=== PATIENT | female | born 1995 | race Caucasian/White ===

== ENCOUNTER 2016-07-07 15:22 | Emergency (ER) | payer BC, MEDICAID, OTHER ==
[~2016-07-07] VITALS: Ht 170.2 cm; Wt 75.8 kg
[2016-07-07 15:25] VITALS: BP 120/78; PULSE 87; RESP 18; TEMP 98.4; O2SAT 100
--- NOTE | 2016-07-07 15:50 | PD ---
HPI Chief Complaint: Chest Pain Time Seen by Provider: 15:45 Travel History International Travel<30 days: No Contact w/Intl Traveler<30days: No Traveled to known affect area: No History of Present Illness HPI Patient is a 21-year-old female presents emergency Department with chest pain. She states the chest pain has been going on since 2011. When asked the patient why it's changed today she states that she went to [facility] twice and was told that it was costochondritis. She states that she was unsatisfied with this diagnosis and decided to come here. Patient states these were remote presentations over a year ago. When pushing the patient find out that she is actually having chest pain for about an hour now. 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 She states that it localized into her chest and her throat. She states it felt very tight and associated with some mild shortness of breath. States this is very similar to previous pain episodes. Patient states she's never followed up with her primary care physician because she doesn 't have one and can't afford one. Patient states that she also thinks she has scoliosis because she's noticed a curvature in her back and thinks this must be contributing to her rib pain. Denies a cough denies fever denies use of oral contraception pills. PFSH Past Medical History Diminished Hearing: No Medical other: Yes (COSTACHRONDITIS) Respiratory: Yes (asthma as child) Tetanus Vaccination: Unknown ?: Not LMP: 06-08-16 Past Surgical History Surgical History: No Previous Surgery Social History Alcohol Use: No Tobacco Use: No Substance Use: No Allergies-Medications (Allergen,Severity, Reaction): Coded Allergies: No Known Allergies (Unverified , 07/07/16) Reported Meds & Prescriptions Reported Meds & Active Scripts Active No Active Prescriptions or Reported Medications Review of Systems Except as stated in HPI: all other systems reviewed are Neg Physical Exam Narrative GENERAL: Well-developed well-nourished in no apparent distress SKIN: No rash no wound. HEAD: Atraumatic. Normocephalic. EYES: Pupils equal and round. No scleral icterus. No injection or drainage. ENT: No nasal bleeding or discharge. Mucous membranes pink and moist. NECK: Trachea midline. No JVD. CARDIOVASCULAR: Regular rate and rhythm. No murmur appreciated. RESPIRATORY: No accessory muscle use. Clear to auscultation. Breath sounds equal bilaterally. 2+ bilateral equal pulses in all 4 extremities GASTROINTESTINAL: Abdomen soft, non-tender, nondistended. Hepatic and splenic margins not palpable. MUSCULOSKELETAL: No obvious deformities. No clubbing. No cyanosis. No edema. NEUROLOGICAL: Awake and alert. No obvious cranial nerve deficits. Motor grossly within normal limits. Normal speech. PSYCHIATRIC: Appropriate mood and affect; insight and judgment normal. Data Data Last Documented VS Vital Signs Date Time Temp Pulse Resp B/P Pulse Ox O2 Delivery O2 Flow Rate FiO2 07/07/16 17:04 61 16 119/68 99 07/07/16 16:08 Nasal Cannula 2 07/07/16 15:25 98.4 Orders Basic Metabolic Panel (Bmp) (07/07/16 15:46) Ckmb (Isoenzyme) Profile (07/07/16 15:46) Complete Blood Count With Diff (07/07/16 15:46) D-Dimer (07/07/16 15:46) Troponin I (07/07/16 15:46) Ecg Monitoring (07/07/16 15:46) Iv Access Insert/Monitor (07/07/16 15:46) Oximetry (07/07/16 15:46) Oxygen Administration (07/07/16 15:46) Sodium Chloride 0.9% Flush (Ns Flush) (07/07/16 16:00) Chest, Pa & Lat (07/07/16 15:46) Ed Urine Pregnancytest Poc (07/07/16 15:46) CKMB (07/07/16 15:40) CKMB% (07/07/16 15:40) Ketorolac Inj (Toradol Inj) (07/07/16 16:45) Labs Laboratory Tests Test 07/07/16 15:40 White Blood Count 6.6 TH/MM3 Red Blood Count 4.65 MIL/MM3 Hemoglobin 13.3 GM/DL Hematocrit 39.9 % Mean Corpuscular Volume 85.8 FL Mean Corpuscular Hemoglobin 28.7 PG Mean Corpuscular Hemoglobin 33.4 % Concent Red Cell Distribution Width 12.6 % Platelet Count 238 TH/MM3 Mean Platelet Volume 8.7 FL Neutrophils (%) (Auto) 61.9 % Lymphocytes (%) (Auto) 29.7 % Monocytes (%) (Auto) 6.5 % Eosinophils (%) (Auto) 0.4 % Basophils (%) (Auto) 1.5 % Neutrophils # (Auto) 4.2 TH/MM3 Lymphocytes # (Auto) 1.9 TH/MM3 Monocytes # (Auto) 0.4 TH/MM3 Eosinophils # (Auto) 0.0 TH/MM3 Basophils # (Auto) 0.1 TH/MM3 CBC Comment DIFF FINAL Differential Comment D-Dimer Quantitative (PE/DVT) 0.21 MG/L FEU Sodium Level 141 MEQ/L Potassium Level 3.7 MEQ/L Chloride Level 108 MEQ/L Carbon Dioxide Level 25.3 MEQ/L Anion Gap 8 MEQ/L Blood Urea Nitrogen 12 MG/DL Creatinine 0.63 MG/DL Estimat Glomerular Filtration 120 ML/MIN Rate Random Glucose 84 MG/DL Calcium Level 8.3 MG/DL Total Creatine Kinase 124 U/L Creatine Kinase MB LESS THAN 0.5 NG/ML Troponin I LESS THAN 0.02 NG/ML MDM Medical Decision Making Medical Screen Exam Complete: Yes Emergency Medical Condition: Yes Interpretation(s) EKG shows sinus arrhythmia with an overall rate of 72, normal axis normal R- wave progression. No concerning ST T changes. Intervals within normal limits. This is normal EKG Differential Diagnosis Chest wall pain, ACS highly unlikely, PR highly unlikely, PE is unlikely. Narrative Course Patient was roomed in the emergency department. She denies possibility for and therefore was given Toradol. She appears comfortable and in no obvious distress. Initial workup including EKG CBC CMP d-dimer and troponin all of which are within normal limits. She is highly atypical and very low risk for cardiac etiology. Discussed with her need for follow-up with a primary care physician at this point. Discussed with her the [facility] and she has been given a flyer and while reading and she states that this would be good for her because she also needs some mental health help. Patient states that she has a history of PTSD but is fairly well-controlled without medication at this time. Diagnosis Primary Impression: Chest pain with low risk for cardiac etiology Referrals: [facility] Scripts No Active Prescriptions or Reported Meds Disposition: 01 DISCHARGE HOME Condition: Stable Napoleon Crane MD July 07, 2016 15:50
[2016-07-07] MEDS ORDERED: SODIUM CHLORIDE 0.9% FLUSH 10 ML FLUSH IVF PRN (16:00)
[2016-07-07 16:05] VITALS: RESP 16; O2SAT 100
[2016-07-07 16:06] LABS: AUTOMATED NEUTROPHIL # 4.2 TH/MM3 (1.8-7.7); BASOPHIL # 0.1 TH/MM3 (0-0.2); BASOPHIL % 1.5 % (0.0-2.0); EOSINOPHIL % 0.4 % (0.0-4.0); HEMATOCRIT 39.9 % (35.0-46.0); HEMO FLAGS DIFF FINAL; LYMPH % 29.7 % (9.0-44.0); LYMPHOCYTE # 1.9 TH/MM3 (1.0-4.8); MEAN CELL VOLUME 85.8 FL (80.0-100.0); MEAN CORPUSCULAR HEMOGLOBIN 28.7 PG (27.0-34.0); MEAN CORPUSCULAR HGB CONC 33.4 % (32.0-36.0); MONO % 6.5 % (0.0-8.0); NEUT % 61.9 % (16.0-70.0); PLATELET COUNT 238 TH/MM3 (150-450); RED BLOOD COUNT 4.65 MIL/MM3 (4.00-5.30); RED CELL DISTRIBUTION WIDTH 12.6 % (11.6-17.2); WHITE BLOOD COUNT 6.6 TH/MM3 (4.0-11.0)
[2016-07-07 16:08] VITALS: BP 120/55; PULSE 88; RESP 16; O2SAT 100
[2016-07-07 16:13] LABS: CHLORIDE 108 MEQ/L (98-107); POTASSIUM 3.7 MEQ/L (3.5-5.1); SODIUM (NA) 141 MEQ/L (136-145)
[2016-07-07 16:16] LABS: ANION GAP 8 MEQ/L (5-15); BICARBONATE 25.3 MEQ/L (21.0-32.0); BLOOD UREA NITROGEN 12 MG/DL (7-18)
[2016-07-07 16:19] LABS: GLOMERULAR FILTRATION RATE 120 ML/MIN (>89)
[2016-07-07 16:22] LABS: CREATINE KINASE 124 U/L (26-192)
--- NOTE | 2016-07-07 16:23 | RADHPO ---
EXAM DATE/TIME: 07/07/2016 15:56 [facility] COMPARISON: No previous studies available for comparison. INDICATIONS : Patient states chest pain since 2014. She has chest pain anytime she stands and exerts herself. She h as had previous x-rays at [facility] in March. MEDICAL HISTORY : None. SURGICAL HISTORY : None. ENCOUNTER: Initial ACUITY: >1 year PAIN SCORE: 5/10 LOCATION: chest Center. FINDINGS: PA and lateral views of the chest demonstrate a normal-sized cardiac silhouette. There is no effusion , consolidation, or pneumothorax. The bones and soft tissues demonstrate no acute abnormality. There is mild thoracic scoliosis. CONCLUSION: 1. No acute cardiopulmonary abnormality is identified. 2. Mild thoracic scoliosis. Collin Wiley MD on July 07, 2016 at 16:20 Board Certified Radiologist. This report was verified electronically.
[2016-07-07 16:35] LABS: CKMB LESS THAN 0.5 NG/ML (0.5-3.6)
[2016-07-07] MEDS ORDERED: KETOROLAC TROMETHAMINE 30 MG/ML (IVP) VIAL IV PUSH ONE (16:45)
[2016-07-07 17:04] VITALS: BP 119/68
--- NOTE | 2016-07-08 15:41 | EKG ---
Date Performed: 07/07/2016 Time Performed: 15:39:44 PTAGE: 21 years EKG: Sinus arrhythmia Normal ECG NO PREVIOUS TRACING DOCTOR: Salvador Pollard Interpretating Date/Time 07/08/2016 15:35:09
== END 2016-07-07 17:18 | disposition home or self-care (01) ==
LOC: PHED 15:22
DX: R07.9 Chest pain, unspecified (principal)
CPT/HCPCS: 71020; 80048; 82550; 82552; 84484; 85025; 85379; 93005; 96374; 99285; J1885